=== PATIENT | female | born 2000 | race Caucasian/White ===

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

== ENCOUNTER 2020-10-18 19:55 | Emergency (ER) | payer OTHER, MEDICAID ==
[~2020-10-18] VITALS: Ht 157.5 cm; Wt 61.8 kg
[~2020-10-18 19:55] MED LIST changes: +CELEXA20 MG PO; +KEFLEX500 MG PO; +OXYBUTYNIN CHLOR5 MG PO
[2020-10-18 20:09] VITALS: Ht 157.5 cm; Wt 61.8 kg
[2020-10-18 20:33] LABS: BILIRUBIN NEGATIVE (NEGATIVE); KETONE NEGATIVE (NEGATIVE); NITRITE POSITIVE (NEGATIVE); UROBILINOGEN NORMAL mg/dL (< 2)
[2020-10-18 20:40] LABS: CALC OSMOLALITY 278 mosm/kg (275-300); CALCIUM 10.3 mg/dL (8.5-10.1); CARBON DIOXIDE 27.8 mmol/L (21.0-32.0); CHLORIDE - SERUM 102 mmol/L (98-107); CREATININE - SERUM 0.9 mg/dL (0.6-1.3); GLUCOSE 101 mg/dL (74-106); SODIUM 139 mmol/L (136-145); UREA NITROGEN 15 mg/dL (7-18); WHITE CELLS - URINE 0-5 HPF (0-4); eGFR NON AFRICAN AMERICAN 85 mL/min (90-120)
[2020-10-18 20:41] LABS: BACTERIA MANY HPF (NONE SEEN); BASOPHILS 0.2 % (0-2); EOSINOPHILS 2.7 % (0-7); HCG URINE NEGATIVE (NEGATIVE); HEMATOCRIT 44.2 % (36.0-48.0); HEMOGLOBIN 14.7 g/dL (12-16); IMMATURE GRANULOCYTES 0.3 % (0-5); LYMPHOCYTE ABS# 3.43 10x3/uL (1.18-3.74); LYMPHOCYTES 22.3 % (15-50); MCH 26.7 pg (26.0-34.0); MCHC 33.3 g/dL (31.0-37.0); MCV 80.2 fL (80.0-100.0); MONOCYTES 7.7 % (2-11); NEUTROPHIL ABS# 10.31 10x3/uL (1.56-6.13); NEUTROPHILS 66.8 % (40-80); PLATELET COUNT 308 10x3/uL (130-400); RBC 5.51 10x6/uL (4.00-5.40); RDW 14.3 % (11.5-14.5); SQUAMOUS EPITHELIAL 0-5 HPF (0-4); WBC 15.4 10x3/uL (4.8-10.8)
[2020-10-18 20:46] LABS: ALBUMIN 4.2 g/dL (3.4-5.0); ALKALINE PHOSPHATASE 107 U/L (30-120); ALT (SGPT) 25 U/L (10-68); AMYLASE - SERUM 67 U/L (25-115); BILIRUBIN - TOTAL 0.31 mg/dL (0.2-1.3); LIPASE 83 U/L (73-393); PROTEIN - SERUM 9.2 g/dL (6.4-8.2)
[2020-10-18] MEDS ORDERED: OMNICEF300 MG PO (21:08)
[2020-10-18 21:26] VITALS: BP 127/84
--- NOTE | 2020-10-18 21:43 | NUR ---
DR LEARY NOTIFIED AND REVIEWED PT BEHAVIOR AND ASSESSMENT RESULTS. PT IS A LOW RISK PER DR LEARY. DR LEARY STATED TO GIVE RESOURCES TO PT AT TIME OF DISCGRAGE. NO FURTHER ORDERS AT THIS TIME. RECOURSES REVIEWED WITH PT AND SHE VERBALIZED UNDERSTANDING.
== END 2020-10-18 21:26 | disposition home or self-care (01) ==
LOC: D.ER 19:55
PROVIDERS: Family Medicine
DX: N39.0 Urinary tract infection, site not specified (principal); R53.1 Weakness; F32.9 Major depressive disorder, single episode, unspecified

== ENCOUNTER 2020-12-01 12:18 | Emergency (ER) | payer OTHER ==
[~2020-12-01] VITALS: Ht 157.5 cm; Wt 58.2 kg
[~2020-12-01 12:18] MED LIST changes: +OMNICEF300 MG PO
[2020-12-01 12:27] VITALS: BP 130/78; Ht 157.5 cm; Wt 58.2 kg
[2020-12-01 13:18] LABS: HCG URINE NEGATIVE (NEGATIVE)
[2020-12-01 13:50] LABS: BACTERIA FEW HPF (NONE SEEN); BILIRUBIN NEGATIVE (NEGATIVE); KETONE NEGATIVE (NEGATIVE); NITRITE NEGATIVE (NEGATIVE); SQUAMOUS EPITHELIAL OCC HPF (0-4); UROBILINOGEN NORMAL mg/dL (< 2); WHITE CELLS - URINE 0-5 HPF (0-4)
[2020-12-01 16:17] LABS: BASOPHILS 0.7 % (0-2); EOSINOPHILS 5.1 % (0-7); HEMATOCRIT 40.1 % (36.0-48.0); HEMOGLOBIN 12.9 g/dL (12-16); LYMPHOCYTES 40.8 % (15-50); MCH 25.5 pg (26.0-34.0); MCHC 32.1 g/dL (31.0-37.0); MCV 79.6 fL (80.0-100.0); MEAN PLATELET VOLUME 8.8 fL (7.4-10.4); MONOCYTES 6.5 % (2-11); NEUTROPHILS 46.9 % (40-80); RBC 5.03 10x6/uL (4.00-5.40); RDW 15.2 % (11.5-14.5)
[2020-12-01 16:19] LABS: PLATELET COUNT 236 10x3/uL (130-400)
[2020-12-01 16:25] LABS: CALC OSMOLALITY 273 mosm/kg (275-300); CALCIUM 9.3 mg/dL (8.5-10.1); CARBON DIOXIDE 28.9 mmol/L (21.0-32.0); CHLORIDE - SERUM 102 mmol/L (98-107); CREATININE - SERUM 0.7 mg/dL (0.6-1.3); GLUCOSE 82 mg/dL (74-106); POTASSIUM - SERUM 3.8 mmol/L (3.5-5.1); SODIUM 138 mmol/L (136-145); UREA NITROGEN 11 mg/dL (7-18); eGFR NON AFRICAN AMERICAN > 90 mL/min (90-120)
[2020-12-01] MEDS ORDERED: MACROBID100 MG PO (16:53)
== END 2020-12-01 17:02 | disposition home or self-care (01) ==
LOC: D.ER 12:18
PROVIDERS: Family Medicine
DX: N39.0 Urinary tract infection, site not specified (principal); N93.9 Abnormal uterine and vaginal bleeding, unspecified; Q05.9 Spina bifida, unspecified